=== PATIENT | female | born 2000 | race American Indian/Alaskan Native ===

== ENCOUNTER 2021-07-15 14:25 | Outpatient (CLI) | payer MEDICAID ==
[2021-07-15 15:00] VITALS: BP 111/56
[2021-07-15] MEDS ORDERED: LACTATED RINGERS 500 ML IV ONE (16:00)
[2021-07-15] MEDS ORDERED: ACETAMINOPHEN 500 MG TAB PO ONE (17:00)
--- NOTE | 2021-07-15 17:32 | Ultrasound Report ---
IV ultrasound INDICATION: Intrauterine FINDINGS: BPD measures 7.17 cm measuring 20 weeks 5 days. Head to, is 25.5 cm measuring 27 weeks 5 da ys. Abdominal circumference is 25.56 cm measuring 29 weeks 5 days. Femoral length 5.1 cm measuring 29 weeks 0 days. weight 13 55 g. Cephalic single intrauterine . Placenta anterior grade 0. heart rate 1 35 bpm. Cervical length 4.1 cm IMPRESSION: Single live intrauterine with ultrasound age 20 weeks 6 days. Cervical length 4.09 cm Signer Name: Ras Manrique MD Signed: 07/15/2021 5:28 PM Workstation Name: [id number]
[2021-07-15 17:42] LABS: Bacteria,Urine 1+ /HPF (Negative); Bilirubin,Urine NEG (Negative); Blood,Urine NEG (Negative); Color,Urine Yellow (Yellow); Mucus,Urine 1+ /HPF; Protein,Urine <15 mg/dL mg/dL (Negative)
== END 2021-07-15 18:40 | disposition home or self-care (01) ==
LOC: APU 14:25 → TRG 14:25
PROVIDERS: ATTEND Obstetrics & Gynecology
DX: Z34.93 Encounter for supervision of normal pregnancy, unspecified, third trimester (principal); Z3A.29 29 weeks gestation of pregnancy
CPT/HCPCS: 59025; 76805; 76815; 76817; 81001

== ENCOUNTER 2021-09-28 00:13 | Inpatient (IN) | payer MEDICAID ==
[2021-09-28] MEDS ORDERED: LACTATED RINGERS 1,000 ML ONE (01:56)
[2021-09-28] MEDS ORDERED: miSOPROStol 200 MCG TAB PR PRN (02:07)
[2021-09-28] MEDS ORDERED: CARBOPROST TROMETHAMINE 250 MCG/1 ML INJ IM PRN (02:07)
[2021-09-28] MEDS ORDERED: TERBUTALINE 1 MG/1 ML INJ SUB-Q PRN (02:07)
[2021-09-28] MEDS ORDERED: OXYTOCIN 10 UNIT/1 ML INJ IM PRN (02:07)
[2021-09-28] MEDS ORDERED: ACETAMINOPHEN 325 MG TAB PO PRN ×2 (02:07→07:00)
[2021-09-28] MEDS ORDERED: ePHEDrine SULFATE 50 MG/1 ML INJ IV PRN (02:07)
[2021-09-28] MEDS ORDERED: LIDOCAINE (2%) 20 MG/1 ML VIAL 20 ML MDV INFILTRATI ONE (02:07)
[2021-09-28] MEDS ORDERED: NALOXONE 0.4 MG/1 ML INJ IV PRN (02:07)
[2021-09-28] MEDS ORDERED: METHYLERGONOVINE MALEATE 0.2 MG/ML VIAL IM PRN (02:07)
[2021-09-28] MEDS ORDERED: ONDANSETRON 4 MG/2 ML INJ IV PRN ×2 (02:07→07:00)
[2021-09-28] MEDS ORDERED: BUTORPHANOL 2 MG/1 ML INJ IV PRN (02:07)
[2021-09-28] MEDS ORDERED: MINERAL OIL 30 ML ORAL LIQD PO PRN (02:07)
[2021-09-28] MEDS ORDERED: LOPERAMIDE 2 MG CAP PO PRN (02:07)
[2021-09-28] MEDS ORDERED: PROMETHAZINE 25 MG TAB PO PRN ×2 (02:07→07:00)
[2021-09-28] MEDS ORDERED: fentaNYL 100 MCG/2 ML INJ IV PRN (02:07)
--- NOTE | 2021-09-28 02:11 | History and Physical Report ---
History of Present Illness Date of examination: 09/28/21 Date of admission: 09/28/2021 Chief complaint: I'm robin. History of present illness: Pt is a 21 y.o. @ 39 wks who presented to triage with c/o contractions. This has been complicated by BMI > 40, elevated 1 hr gtt (no 3 hr gtt taken. Pt missed that appointment), and late care (1st visit occurred at 35 weeks). EDC Confirmation: 10/05/2021 Gestational Age: 39 weeks on admission Past History : 2 Term Births: 1 Premature Births: 0 Living Children: 1 Para: 1 Mult. Births: 0 Prev : 0 Aborta: 0 Elect. Ab: 0 Spont. Ab: 0 Ectopics: 0 # 1 Delivery date: 05/04/2020 Weeks Gestation: 41 labor: no Delivery type: Hours of labor: 15 Anesthesia type: epidural Delivery location: [place] Infant Sex: Female weight: 7-5 Name: Thang Comments: Induction Past Medical History: Reviewed and updated today: Asthma Past Surgical History: Reviewed and updated today: Negative Past Surgical History Family History Summary: Other Family Member - Has No Family History of Ovarvian Cancer - Entered On: 09/04/2021 Other Family Member - Has No Family History of Colon Cancer - Entered On: 08/10 Other Family Member - Has Family History of Hypertension - Entered On: 09/04/2021 Other Family Member - Has Family History of Diabetes - Entered On: 09/04/2021 Other Family Member - Has Family History of Coronary Heart Disease - Entered On: 09/04/2021 Other Family Member - Has Family History Breast Cancer - Entered On: 09/04/2021 Social History: Marital Status: Single Children: 1 Occupation: Unemployment Smoking History: Patient has never smoked. 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 Infection History Hx of STD: none HIV Risk Eval: low risk Hepatitis B Risk Eval: low risk Personal hx. of genital herpes: no Genetic History Congenital Heart Defect: Mom: no Dad: no [place] Disease: Mom: no Dad: no Thalassemia Mom: no Dad: no Neural Tube Defect Mom: no Dad: no Down's Syndrome Mom: no Dad: no Hector-Sachs Mom: no Dad: no Sickle Cell Disease/Trait Mom: no Dad: no Hemophilia Mom: no Dad: no Muscular Dystrophy Mom: no Dad: no Cystic Fibrosis Mom: no Dad: no [place] Chorea Mom: no Dad: no Mental Retardation Mom: no Dad: no Fragile X Mom: no Dad: no Other Genetic/Chromosomal Disorder Mom: no Dad: no Child w/other defect Mom: no Dad: no Enviromental Exposures Xray Exposure: no Medication, drug, or alcohol use since LMP: no Chemical/Other Exposure: no Exposure to Cat Liter: no Active Medications (reviewed today): None Current Allergies (reviewed today): No known allergies Past History Past Medical History: asthma Family/Genetic History: diabetes, heart disease, hypertension, cancer Social history: no significant social history - Obstetrical History Expected Date of Delivery: 10/05/21 Actual Gestation: 39 Week(s) 0 Day(s) : 2 Para: 1 Hx # Term Pregnancies: 1 Number of Pregnancies: 0 Spontaneous Abortions: 0 Induced : 1 Medications and Allergies Allergies Allergy/AdvReac Type Severity Reaction Status Date / Time No Known Allergies Allergy Verified 07/15/21 15:08 Review of Systems All systems: negative Genitourinary: contractions - Vital Signs Vital signs: Vital Signs Pulse BP Pulse Ox 85 140/76 100 09/28/21 00:52 09/28/21 00:52 09/28/21 00:52 Temp Pulse Resp BP Pulse Ox 80 129/63 100 09/28/21 01:50 09/28/21 01:50 09/28/21 01:42 - Physical Exam Cardiovascular: Regular rate Lungs: Positive: Normal air movement Abdomen: Positive: normal appearance Genitourinary (Female): Positive: normal external genitalia, normal perenium Vulva: both: normal Uterus: Positive: other (Obese abdomen.) Extremities: Positive: edema (+1 edema noted to bilateral lower extremities. ) - Obstetrical FHR: category 1 Uterine Contraction Monitor Mode: External Cervical Dilatation: 6 (No BOW felt during exam.) Cervical Effacement Percentage: 90 station: -2 Uterine Contraction Pattern: Regular Uterine Tone Measurement Phase: Resting Uterine Contraction Intensity: Moderate Results Result Diagrams: 09/28/21 02:20 All other labs normal. GBS NEGATIVE HBsAg Screen Negative Negative *1 RPR Non Reactive Non Reactive *2 Rubella Antibodies, IgG 4.02 index Immune >0.99 *3 Non-immune <0.90 Equivocal 0.90 - 0.99 Immune >0.99 ABO Grouping B *4 Rh Factor Positive *5 Please note: Prior records for this patient's ABO / Rh type are not available for additional verification. Antibody Screen Negative Negative *6 WBC [H] 14.8 x10E3/uL 3.4-10.8 *7 RBC 3.88 x10E6/uL 3.77-5.28 *8 Hemoglobin [L] 10.9 g/dL 11.1-15.9 *9 Hematocrit [L] 33.5 % 34.0-46.6 *10 MCV 86 fL 79-97 *11 MCH 28.1 pg 26.6-33.0 *12 MCHC 32.5 g/dL 31.5-35.7 *13 RDW 12.7 % 11.7-15.4 *14 Platelets 230 x10E3/uL 150-450 *15 Neutrophils 82 % Not Estab. *16 Lymphs 13 % Not Estab. *17 Monocytes 4 % Not Estab. *18 Eos 0 % Not Estab. *19 Basos 0 % Not Estab. *20 ! Immature Cells <No Reported Value> *21 Neutrophils (Absolute) [H] 12.2 x10E3/uL 1.4-7.0 *22 Lymphs (Absolute) 1.8 x10E3/uL 0.7-3.1 *23 Monocytes(Absolute) 0.6 x10E3/uL 0.1-0.9 *24 Eos (Absolute) 0.0 x10E3/uL 0.0-0.4 *25 Baso (Absolute) 0.0 x10E3/uL 0.0-0.2 *26 ! Immature Granulocytes 1 % Not Estab. *27 ! Immature Grans (Abs) 0.1 x10E3/uL 0.0-0.1 *28 ! NRBC <No Reported Value> *29 Hematology Comments: <No Reported Value> *30 Tests: (2) HCV Antibody RFX to Quant PCR ([id number]) HCV Ab <0.1 s/co ratio 0.0-0.9 *31 Tests: (3) Interpretation: ([id number]) ! Interpretation: SPRCS *32 Negative Not infected with HCV, unless recent infection is suspected or other evidence exists to indicate HCV infection. Tests: (4) HB Solu + Rflx Frac ([id number]) Hemoglobin (Hgb) Solubility Negative Negative *33 Tests: (5) HIV Ab/p24 Ag with Reflex ([id number]) HIV Ab/p24 Ag Screen Non Reactive Non Reactive *34 HIV Negative HIV-1/HIV-2 antibodies and HIV-1 p24 antigen were NOT detected. There is no laboratory evidence of HIV infection. Tests: (6) Gest. Diabetes 1-Hr Screen ([id number]) ! Gestational Diabetes Screen [H] 145 mg/dL 65-139 *35 According to ADA, a glucose threshold of >139 mg/dL after 50-gram load identifies approximately 80% of women with gestational diabetes mellitus, while the sensitivity is further increased to approximately 90% by a threshold of >129 mg/dL. Assessment and Plan A: 21 y.o. @ 39 wks, active labor, limited care. - Patient Problems (1) BMI 45.0-49.9, adult Current Visit: Yes Status: Acute (2) Limited care in third trimester Current Visit: Yes Status: Acute Plan to address problem: Admit to labor and delivery. Initiate IV. Draw admission labs. Pain management: epidural and IV pain medication. Case management after delivery. Anticipate . (3) with 39 completed weeks gestation Current Visit: Yes Status: Acute Plan to address problem: Continuous EFM to monitor status.
[2021-09-28] MEDS ORDERED: LACTATED RINGERS 1,000 ML IV SCH (02:15)
[2021-09-28 02:38] LABS: Hematocrit 36.3 % (30.3-42.9); Hemoglobin 11.8 gm/dl (10.1-14.3); Mean Corpuscular HGB Conc 33 % (30-34); Mean Corpuscular Volume 88 fl (79-97); Platelet Count 230 K/mm3 (140-440); Red Blood Count 4.13 M/mm3 (3.65-5.03); Red Cell Distribution Width 14.3 % (13.2-15.2)
[2021-09-28] MEDS ORDERED: OXYTOCIN DRIP 30 UNITS/500 ML BAG IV SCH ×3 (03:00→07:00)
--- NOTE | 2021-09-28 03:18 | Procedure Note ---
OB Delivery Note - Delivery Date of Delivery: 09/28/21 Autocutter: SHAHAB OLSEN Estimated blood loss: 100cc - Vaginal Delivery presentation: vertex Delivery position: OA Intrapartum events: precipitous labor- <3hr, other(please specify) (Limited care.) Delivery induction: none Delivery monitor: external FHT, external uterine Route of delivery: Delivery placenta: spontaneous Delivery cord: 3 umbilical vessels Episiotomy: none Delivery laceration: none Anesthesia: intravenous (Fentanyl X1) Delivery comments: Called to triage room after patient states that she feels as though the baby is coming. Upon entering, a large amount of amniotic fluid noted flowing from vagina and onto the bed. After patient was repositioned in bed, infant head was . of viable female infant. to mother's abdomen for skin to skin. cord clamped after cessation of pulse. Cut by FOC. Spontaneous delivery of placenta, intact, complete, 3 vessels noted. Perineum and vagina inspected, no lacerations noted. Fundus firm, minimal bleeding noted. Blood loss: 100ml. Apgars, 8,9. weight 6-2. Sponges and instruments counted X2 with RN and correct X2. Infant and mother left in triage room in stable condition in care of RN. - A at 1 minute: 8 at 5 minutes: 9 Infant Gender: Female (6-2)
[2021-09-28] MEDS ORDERED: IBUPROFEN 600 MG TAB PO PRN (05:35)
[2021-09-28] MEDS: IBUPROFEN 800 MG TAB PO SCH ×3 (06:00→18:13)
[2021-09-28] MEDS ORDERED: LANOLIN/ZINC/DIMETHICONE (LANSINOH) 7 GM TP PRN ×2 (06:33→07:00)
[2021-09-28] MEDS ORDERED: miSOPROStol 100 MCG TAB PR PRN (06:33)
[2021-09-28] MEDS ORDERED: BENZOCAINE/MENTHOL 20/0.5% TOP SPRAY 56 GM TP PRN (06:33)
[2021-09-28] MEDS ORDERED: WITCH HAZEL/ GLYCERIN PAD TP PRN (07:00)
[2021-09-28] MEDS ORDERED: PROMETHAZINE 25 MG RECT SUPP PR PRN (07:00)
[2021-09-28] MEDS ORDERED: MAGNESIUM HYDROXIDE (MOM) ORAL LIQD UDC PO PRN (07:00)
[2021-09-28] MEDS ORDERED: diphenhydrAMINE 25 MG CAP PO PRN (07:00)
[2021-09-28] MEDS ORDERED: oxyCODONE /ACETAMINOPHEN 5-325MG TAB PO PRN (07:00)
[2021-09-28] MEDS: DOCUSATE SODIUM 100 MG CAP PO SCH (10:22)
[2021-09-28] MEDS: PRENATAL VIT27-FE FUMARATE-FOLIC ACID VIT TAB PO SCH (10:22)
[2021-09-28 18:59] LABS: Hematocrit 31.6 % (30.3-42.9); Hemoglobin 10.5 gm/dl (10.1-14.3)
[2021-09-29] MEDS: DOCUSATE SODIUM 100 MG CAP PO SCH ×2 (00:30→09:56)
[2021-09-29] MEDS: IBUPROFEN 800 MG TAB PO SCH ×3 (00:39→16:24)
[2021-09-29] MEDS ORDERED: TETANUS,DIPH,PERTUSS(ACELL) VACCINE 0.5 ML SYRINGE IM ONE (05:24)
--- NOTE | 2021-09-29 07:52 | Discharge Summary ---
Providers - Providers Date of Admission: 09/28/21 02:37 Date of discharge: 09/29/21 Attending physician: ASH CANELA 09/28/21 05:56 Consult to Case Management [CONS] Routine Services Needed at Discharge: Emr Implementation Specialist Notified:: yes Additional Physician Instructions: Limited care. 09/28/21 06:33 Consult to Chemical Dependency Nurse [CONS] Routine Reason For Exam: assistance with , SNS Primary care physician: BANQUET KITCHEN SUPERVISOR Hospitalization Reason for admission: active labor Delivery: Episiotomy: none Laceration: none Other procedures: none complications: none Discharge diagnosis: IUP at term delivered [place] baby: female Hospital course: S: Pt doing well. Ambulating, voiding, and passing flatus. BC: Depo. O: VSS. Adequate I&O's. Fundus firm, minimal bleeding noted. H/H 10.5/32.0 A: 21 y.o. s/p . In good condition . P: Discharge home with instructions. Pt to schedule visit in 4-6 weeks. Condition at discharge: Good Disposition: 01 HOME / SELF CARE / HOMELESS - Discharge Diagnoses (1) BMI 45.0-49.9, adult Status: Acute (2) Limited care in third trimester Status: Acute (3) with 39 completed weeks gestation Status: Acute Plan - Provider Discharge Summary Activity: routine, no sex for 6 weeks, no heavy lifting 4 weeks, no strenuous exercise Diet: routine Instructions: routine Additional instructions: [] Smoking cessation referral if applicable(refer to patient education folder for contact #) [] Refer to [facility] Booklet Call your doctor immediately for: * Fever > 100.5 * Heavy vaginal bleeding ( >1 pad per hour) * Severe persistent headache * Shortness of breath * Reddened, hot, painful area to leg or breast - Follow up plan Follow up: PRIMARY CARE, [Primary Care Provider] - 7 Days ASH CANELA MD [Staff Physician] - 6 Weeks (- Congratulations on the of your baby girl! - Thank you for allowing us to take care of you! - Please schedule your visit in the office in 4-6 weeks. - Should you have any questions or concerns after discharge, please do not hesitate to call us at .)
[2021-09-29] MEDS ORDERED: medroxyPROGESTERone ACETATE 150 MG/ML SYRINGE IM SCH (08:00)
[2021-09-29] MEDS: PRENATAL VIT27-FE FUMARATE-FOLIC ACID VIT TAB PO SCH (09:55)
[2021-09-29 17:32] VITALS: BP 116/65
== END 2021-09-29 17:47 | disposition home or self-care (01) | DRG 775 ==
LOC: TRG 00:13 → APU 00:16 → TRG 02:07 → LD 02:37 → OB 06:13
PROVIDERS: ADMIT Obstetrics & Gynecology; ATTEND Obstetrics & Gynecology
PROC: 10E0XZZ Delivery of Products of Conception, External Approach (ICD-10-PCS; principal; 2021-09-28)
PROC: 3E0234Z Introduction of Serum, Toxoid and Vaccine into Muscle, Percutaneous Approach (ICD-10-PCS; 2021-09-29)
DX: O62.3 Precipitate labor (principal); Z20.822 Contact with and (suspected) exposure to COVID-19; Z23 Encounter for immunization; Z37.0 Single live birth; Z3A.39 39 weeks gestation of pregnancy; O99.52 Diseases of the respiratory system complicating childbirth; J45.909 Unspecified asthma, uncomplicated; Z83.3 Family history of diabetes mellitus; Z82.49 Family history of ischemic heart disease and other diseases of the circulatory system
CPT/HCPCS: 36415; 85014; 85018; 85027; 86592; 86850; 86900; 86901; 90471; 90715; 96360; 96365; 96374; G0378; J1050; J2590; J3010; J7120; U0003